=== PATIENT | female | born 1995 ===

== ENCOUNTER → 2025-07-13 | Outpatient (CLI) | payer BC ==
[2025-07-13 20:20] LABS: Bacterial Vaginosis PCR Negative (NEGATIVE); Candida Group, PCR NOT DETECTED (NOT DETECT); Candida glabrata-krusei, PCR NOT DETECTED (NOT DETECT)
== END ==
LOC: LAB 17:08 → LAB SHORT 17:08
PROVIDERS: Advanced Practice Midwife
DX: N76.0 Acute vaginitis (principal)
CPT/HCPCS: 81515